=== PATIENT | female | born 2000 | race Caucasian/White ===

== ENCOUNTER 2024-05-05 16:19 | Inpatient (IN) | payer OTHER ==
[2024-05-05 16:46] VITALS: BMI 40.1
[2024-05-05 17:40] LABS: #Basophils 0.05 10x3/uL (0.0-0.2); #Eosinophils 0.02 10x3/uL (0.0-0.5); #Neutrophils 7.19 10x3/uL (1.5-8.4); %Basophils 0.5 % (0.0-2.0); %Eosinophils 0.2 % (0.0-6.0); %Lymphocytes 19.5 % (18.0-47.0); %Monocytes 10.5 % (0.0-10.0); %Neutrophils 68.9 % (40.0-75.0); Hematocrit 34.3 % (34.9-44.5); Hemoglobin 11.5 g/dL (12.0-15.5); Mean Corpuscular HGB CONC 33.5 g/dL (32.0-36.0); Mean Corpuscular Hemoglobin 29.3 pg (27.0-33.0); Mean Corpuscular Volume 87.5 fL (81.6-98.3); Mean Platelet Volume 10.7 fL (7.4-10.4); Platelet Count 308 10x3/uL (150-450); RBC Distribution Width 13.2 % (11.5-14.5); Red Blood Cell (RBC) Count 3.92 10x6/uL (3.90-5.03); White Blood Cell (WBC) Count 10.4 10x3/uL (3.5-10.5)
[2024-05-05 17:54] LABS: ALT (SGPT) 17 U/L (8-55); AST (SGOT) 22 U/L (5-34); Albumin 2.7 g/dL (3.5-5.0); Alkaline Phosphatase 126 U/L (40-110); Anion Gap 16 mmol/L (10-20); BUN (Urea Nitrogen) 14 mg/dL (7.0-18.7); Bilirubin, Total 0.3 mg/dL (0.2-1.2); Calc. Creatinine Clearance 179 mL/min (70-130); Calcium 9.1 mg/dL (7.8-10.44); Carbon Dioxide 19 mmol/L (22-29); Chloride 107 mmol/L (98-107); Estimated GFR 108; Globulin 3.3 g/dL (2.4-3.5); Glucose 71 mg/dL (70-105); Potassium 4.4 mmol/L (3.5-5.1); Sodium 138 mmol/L (136-145)
[2024-05-05 18:06] LABS: Creatinine, Urine 225.64 mg/dL (47-110)
[2024-05-05] MEDS ORDERED: hydrALAZINE 20 MG/ML VIAL SLOW IVP PRN ×2 (18:15→18:46)
[2024-05-05] MEDS ORDERED: Misoprostol 200 MCG TAB PR PRN (18:46)
[2024-05-05] MEDS ORDERED: Carboprost 250 MCG/ML AMP IM PRN (18:46)
[2024-05-05] MEDS ORDERED: Diphenoxylate HCl/Atropine Tablet PO PRN (18:46)
[2024-05-05] MEDS ORDERED: Ondansetron PF 4 MG/2 ML Vial IVP PRN (18:46)
[2024-05-05] MEDS ORDERED: Methylergonovine 0.2 MG/ML VIAL IM PRN (18:46)
[2024-05-05] MEDS ORDERED: Promethazine HCl 25 MG/ML VIAL IM PRN (18:46)
[2024-05-05] MEDS ORDERED: Oxytocin 30 units/NS 500 ML 500 ML IV SCH ×2 (19:00)
[2024-05-05] MEDS ORDERED: Acetaminophen 500 MG TAB PO PRN (21:39)
[2024-05-05] MEDS: Misoprostol 100 MCG TAB VAG SCH (21:55)
[2024-05-05 22:38] LABS: Hep B Surf Ag - L&D Non-Reactive S/CO (NonReactive)
[2024-05-05 22:39] LABS: Syphilis Antibody Nonreactive (Nonreactive); Syphilis Antibody Index 0.09 S/CO (<1.00 Non-Reactive)
[2024-05-05] MEDS: Acetaminophen 500 MG TAB PO SCH (23:43)
[2024-05-06] MEDS: Lactated Ringer's 1,000 ML IV SCH (00:03)
[2024-05-06] MEDS ORDERED: DISCONTINUE ALL PREVIOUS NARCOTICS FS SCH (02:15)
[2024-05-06] MEDS ORDERED: SODIUM CHLORIDE 0.9% EPIDURAL SCH (02:30)
[2024-05-06] MEDS ORDERED: BUPIVACAINE 0.5% EPIDURAL SCH (02:30)
[2024-05-06] MEDS ORDERED: FENTANYL EPIDURAL SCH (02:30)
[2024-05-06] MEDS: Bupivacaine 0.25% HCL 30 ML VIAL ONE (03:45)
[2024-05-06] MEDS ORDERED: Milk Of Magnesia 30 ML UDCUP PO PRN (04:04)
[2024-05-06] MEDS ORDERED: Boostrix 0.5 ML (Tdap) VIAL (>/=7 yrs of age) IM ONE (04:04)
[2024-05-06] MEDS ORDERED: Bisacodyl 10 MG SUPP PR PRN (04:04)
[2024-05-06] MEDS: Ibuprofen 800 MG TAB PO SCH (09:24)
[2024-05-06] MEDS ORDERED: Acetaminophen 500 MG TAB PO PRN (10:34)
[2024-05-06] MEDS: Acetaminophen 325 MG TAB PO PRN (14:28)
[2024-05-06] MEDS: Docusate 100 MG CAP PO SCH (17:08)
[2024-05-06] MEDS: Mupirocin 2% Ointment 22 GM Tube TOP SCH (21:09)
[2024-05-07] MEDS: Ibuprofen 800 MG TAB PO SCH (03:24)
[2024-05-07 07:35] VITALS: BP 136/77; TEMP 98
== END 2024-05-07 16:40 | disposition home or self-care (01) | DRG 807 ==
LOC: CSHLD/OP 16:19 → CSHLD 19:13 → CSHPP 05-06 05:50
PROVIDERS: ADMIT Obstetrics & Gynecology; ATTEND Obstetrics & Gynecology
PROC: 10E0XZZ Delivery of Products of Conception, External Approach (ICD-10-PCS; principal; 2024-05-06)
PROC: 0KQM0ZZ Repair Perineum Muscle, Open Approach (ICD-10-PCS; 2024-05-06)
DX: O14.04 Mild to moderate pre-eclampsia, complicating childbirth (principal); Z37.0 Single live birth; I73.81 Erythromelalgia; Z88.8 Allergy status to other drugs, medicaments and biological substances; Z79.899 Other long term (current) drug therapy; Z3A.38 38 weeks gestation of pregnancy; O99.42 Diseases of the circulatory system complicating childbirth; O70.1 Second degree perineal laceration during delivery
CPT/HCPCS: 36415; 80053; 82570; 84156; 85025; 86780; 86850; 86900; 86901; 87340; 97139; 99285; J3010; J3490